=== PATIENT | female | born 1995 | race African-American/Black ===

== ENCOUNTER 2018-09-30 21:37 | Emergency (ER) | payer OTHER ==
[~2018-09-30] VITALS: Ht 162.6 cm; Wt 54.4 kg
[~2018-09-30 21:37] MED LIST: CIPR500T94 PO; DOXY100T PO; METO10TA81 PO; [no home meds]
[2018-09-30 22:14] LABS: BILIRUBIN,URINE SMALL (NEG); CLARITY,URINE CLEAR; COLOR,URINE AMBER; NITRITE,URINE NEGATIVE (NEG); PROTEIN,URINE 30 mg/dL (NEG-TRACE)
[2018-09-30 22:24] LABS: BACTERIA,URINE FEW /HPF (0-FEW); RBC,URINE 0 /HPF (0-2); SQUAMOUS EPITHELIAL CELL,UR MOD /LPF
[2018-09-30] MEDS ORDERED: ONDANSETRON ODT 4 MG TAB.RAPDIS. PO ONE (22:30)
[2018-09-30] MEDS ORDERED: ONDA4TAB7 PO (23:02)
--- NOTE | 2018-09-30 23:03 | PHYS DOC ---
Past Medical History Past Medical History: No Pertinent History, Other Additional Past Medical Histor: gastroparesis Past Surgical History: No Surgical History, Other Additional Past Surgical Histo: KNEE SX Alcohol Use: None Drug Use: Marijuana Adult General Chief Complaint Chief Complaint: NAUSEA/VOMITING/[facility] HPI Patient is a 23 year old female with history of gastroparesis presented to the ED today concerned she could be though she did a test at home which was positive. Patient states the last time she had a menstrual cycle was months ago when she delivered her 6-month-old baby. Patient states she's had nausea and vomiting for 3 days. Denies any abdominal pain. Denies any fever. Denies any urgency or frequency. She states she would like us to write her a note for light duty or excuse from work during her . Informed patient I can write her note for 3 days off work but she needs to see an [employer] SYSTEMS ENGINEER to be excused from work. Review of Systems Review of Systems Constitutional: Denies fever or chills [] Eyes: Denies change in visual acuity, redness, or eye pain [] HENT: Denies nasal congestion or sore throat [] Respiratory: Denies cough or shortness of breath [] Cardiovascular: No additional information not addressed in HPI [] GI: Reports nausea and vomiting, concerned she could be . Denies abdominal pain bloody stools or diarrhea [] : Denies dysuria or hematuria [] Musculoskeletal: Denies back pain or joint pain [] Integument: Denies rash or skin lesions [] Neurologic: Denies headache, focal weakness or sensory changes [] All other systems were reviewed and found to be within normal limits, except as documented in this note. Current Medications Current Medications Current Medications Medications (Trade) Dose Ordered Sig/[facility] Start Time Stop Time Status Last Admin Dose Admin Ondansetron HCl (Zofran Odt) 4 mg 1X ONCE 09/30/18 22:30 09/30/18 22:31 DC 09/30/18 22:28 4 MG Allergies Allergies Allergies Coded Allergies Type Severity Reaction Last Updated Verified No Known Drug Allergies 06/30/14 No Physical Exam Physical Exam Constitutional: Well developed, well nourished, no acute distress, non-toxic appearance. [] HENT: Normocephalic, atraumatic, bilateral external ears normal, oropharynx moist, no oral exudates, nose normal. [] Eyes: PERRLA, EOMI, conjunctiva normal, no discharge. [] Neck: Normal range of motion, no tenderness, supple, no stridor. [] Cardiovascular:Heart rate regular rhythm, no murmur [] Lungs & Thorax: Bilateral breath sounds clear to auscultation [] Abdomen: Bowel sounds normal, soft, no tenderness, no masses, no pulsatile masses. [] Skin: Warm, dry, no erythema, no rash. [] Back: No tenderness, no CVA tenderness. [] Extremities: No tenderness, no cyanosis, no clubbing, ROM intact, no edema. [] Neurologic: Alert and oriented X 3, normal motor function, normal sensory function, no focal deficits noted. [] Psychologic: Affect normal, judgement normal, mood normal. [] Current Patient Data Vital Signs Vital Signs Date Time Temp Pulse Resp B/P (MAP) Pulse Ox O2 Delivery O2 Flow Rate FiO2 09/30/18 21:50 98.8 96 16 114/67 (83) 97 Room Air 98.8 Lab Values Laboratory Tests Test 09/30/18 21:40 09/30/18 21:52 Urine Collection Type Unknown Urine Color Tri Urine Clarity Clear Urine pH 6.0 Urine Specific [place] >=1.030 Urine Protein 30 mg/dL (NEG-TRACE) Urine Glucose (UA) Negative mg/dL (NEG) Urine Ketones (Stick) >=80 mg/dL (NEG) Urine Blood Negative (NEG) Urine Nitrite Negative (NEG) Urine Bilirubin Small (NEG) Urine Urobilinogen Dipstick 1.0 mg/dL (0.2 mg/dL) Urine Leukocyte Esterase Trace (NEG) Urine RBC 0 /HPF (0-2) Urine WBC 1-4 /HPF (0-4) Urine Squamous Epithelial Cells Mod /LPF Urine Bacteria Few /HPF (0-FEW) Urine Mucus Marked /LPF POC Urine HCG, Qualitative Hcg positive (Negative) EKG EKG [] Radiology/Procedures Radiology/Procedures [] Course & Med Decision Making Course & Med Decision Making Pertinent Labs and Imaging studies reviewed. (See chart for details) This is a 23-year-old female patient presenting to the ED today with nausea vomiting for 3 days. She is also concerned she could be . Positive urine hCG, urine analysis is negative for infection. She is requesting a note to excuse her from work during her , patient informed we can excuse for 3 days but we cannot completely excuse her from work during the entire , she needs to see an [employer] SYSTEM[employer] ENGINEER for this. She was given Zofran, UA negative for infection discharged to home. Follow-up with [employer] ENGINEER. Erwin Disclaimer Dragon Disclaimer This electronic medical record was generated, in whole or in part, using a voice recognition dictation system. Departure Departure Impression: Primary Impression: Additional Impression: Nausea and vomiting during Disposition: HOME, SELF-CARE Condition: STABLE Referrals: LARON PARK MD (PCP) DIXIE LOPEZ MD follow up next week Patient Instructions: ABCs of , Diet - Hyperemesis Gravidarum, Hyperemesis Gravidarum Additional Instructions: Your test is positive, congratulations. Take the prescribed Zofran as needed for nausea or vomiting. Take vitamins. Follow-up with your [employer] SYSTEM[employer] ENGINEER or the provided one in the course of next week and they can try to a note for work. Scripts Ondansetron Hcl (ZOFRAN) 4 Mg Tablet 1 TAB PO Q6HRS, #30 TAB Prov: BLANK TUBBS APRN 09/30/18 Problem Qualifiers Primary Impression: Weeks of gestation: less than 8 weeks Qualified Codes: Z3A.01 - Less than 8 weeks gestation of BLANK TUBBS APRN Sep 30, 2018 23:03
[2018-09-30 23:10] VITALS: BP 114/71
== END 2018-09-30 23:16 | disposition home or self-care (01) ==
LOC: ER 21:37
DX: O21.9 Vomiting of pregnancy, unspecified (principal); Z3A.01 Less than 8 weeks gestation of pregnancy
CPT/HCPCS: 81001; 81025; 87086; 99284; Q0162